=== PATIENT | female | born 1970 | race Caucasian/White ===

== ENCOUNTER 2017-04-08 01:15 | Emergency (ER) | payer OTHER ==
--- NOTE | ~2017-04-08 | ER ---
PATIENT'S NAME: LEEANNE PARIKH [facility] AGE: 47 Y [address] ROOM: [place] [id number] LOCATION: [facility] ADMIT DATE: 04/08/2017 ER/Outpatient Report DISCHARGE DATE: 04/08/2017 FAMILY PHYSICIAN: Sheldon Ledesma MD ATTENDING PHYSICIAN: Radha New HISTORY OF PRESENT ILLNESS: A 47-year-old female, who presented today with chief complaint of "feeling jittery." The patient says that she feels strange, and has been feeling like this for the last 45 minutes. She says she feels like there is like an adrenaline smith going into her body, and feels like that her heart should be racing, but it is not. She said it was 80 beats per minute at home. She has had symptoms on and off for the last week. She has not had anything like this prior to that though. She reports that she went to see Dr. Ledesma yesterday in the office, and he had scheduled her for a blood check early today at 6 hours from now. She was able to get her cortisol, electrolytes, thyroid, etc. checked for this, and then he was planning to send her to Endocrinology. The patient denies headache or sore throat. She has some mild nausea, but no chest pain. No shortness of breath. No vomiting. No abdominal pain. No fever or chills. No problems urinating. No back pain. No diarrhea. No headache. No other complaints at this time. It is exactly the same as it has been for the last week, but has felt like her heart was racing, and that she had a huge adrenaline smith and her legs were shaking, so that is why she was scared and that is why she came in. She already feels better. She says she is 50% better than when she was at home. PAST MEDICAL HISTORY: Includes 1. Heart palpitations. 2. Neck pain. SURGICAL HISTORY: 1. Gallbladder surgery. 2. . OBSTETRICS AND GYNECOLOGICAL HISTORY: LMP was last month. She denies being , though. SOCIAL HISTORY: She drinks alcohol daily, but does not smoke or use any drugs. She denies heavy coffee use or any energy drinks. No amphetamines. No other illicit drug use. MEDICATIONS: Please see med list. PATIENT'S NAME: LEEANNE PARIKH [facility] AGE: 47 Y [address] ROOM: [place], [place] [address] LOCATION: [facility] ADMIT DATE: 04/08/2017 ER/Outpatient Report DISCHARGE DATE: 04/08/2017 FAMILY PHYSICIAN: Sheldon Ledesma MD ATTENDING PHYSICIAN: Radha New ALLERGIES: PLEASE SEE MED LIST. REVIEW OF SYSTEMS: Reviewed by me and with the exception of those discussed in HPI. PHYSICAL EXAMINATION: VITAL SIGNS: The patient is 5 feet 6 inches and she weighs 85.9 kilos. Blood pressure was 120/67, heart rate was 64, respiratory rate was 14, temperature was 98.8, and sats were 99% on room air. GENERAL: The patient is not in any acute distress. She is really anxious, and she has a slightly pressured speech, but she is alert and oriented x4. She is afebrile. She is nontoxic. HEENT: Her pupils are equal and reactive to light. They are 3 mm and they constrict appropriately. GCS is 15. She has no proptosis. NECK: She has no thyroid mass or goiter. CARDIAC: Heart rate is regular rate and rhythm. Her heart rates are 62 beats per minute at this time. PULMONARY: Her lungs sounds are clear. ABDOMEN: Soft, nontender, and nondistended. EXTREMITIES: She moves all extremities without any difficulty. NEUROLOGICAL: She is legally blind in the right eye, and she wears glasses which she does not have right now, but she tracks appropriately. Her visual dye are intact. She is able to do [id number] testing. Cranial nerves II through XII are intact. Strength in bilateral upper extremities is 5/5 and lower extremities is 5/5. EMERGENCY ROOM COURSE: I gave the patient Zofran for her nausea. We watched her for a bit until she felt a little bit better. She is going to have this entire workup done in 6 hours from now. I would not do anything new now as there are no red flags in her history or physical exam. She has no new focal or neuro symptoms. So, we will have her follow up with Dr. Ledesma in the morning for the labs, which will hopefully elucidate what she has been feeling for all week. She understands and agrees to go back to the ER sooner. IMPRESSION: Feeling jittery. RADHA NEW MD PATIENT'S NAME: LEEANNE PARIKH [facility] AGE: 47 Y [address] ROOM: [place] [id number] LOCATION: [facility] ADMIT DATE: 04/08/2017 ER/Outpatient Report DISCHARGE DATE: 04/08/2017 FAMILY PHYSICIAN: Sheldon Ledesma MD ATTENDING PHYSICIAN: Radha New/eileen /[id number] d: 04/08/17 0450 t: 04/08/17 1934, OUTPATIENT REPORT
[~2017-04-08 01:15] MED LIST: ATENOLOL25 MG PO; FLEXERIL10 MG PO; IRON325 M1 PO; THERA-VITE W/ B1 TAB PO
== END 2017-04-08 02:40 | disposition disaster alternative care site (69) ==
LOC: GMED 01:15
DX: R68.89 Other general symptoms and signs (principal); R11.0 Nausea; Z79.899 Other long term (current) drug therapy; Z88.2 Allergy status to sulfonamides; Z98.890 Other specified postprocedural states

== ENCOUNTER → 2017-05-01 | Outpatient (CLI) | payer OTHER | END | disposition disaster alternative care site (69) | LOC: GBCOE 12:00 | DX: Z12.31 Encounter for screening mammogram for malignant neoplasm of breast (principal) | CPT/HCPCS: G0202 ==